=== PATIENT | male | born 1985 ===

== ENCOUNTER 2018-11-03 21:36 | Emergency (ER) | payer SELFPAY ==
[~2018-11-03] VITALS: Ht 172.7 cm; Wt 97.5 kg
[2018-11-03] MEDS ORDERED: NS IV 1000 ML 1,000 ML IV SCH (21:45)
[2018-11-03] MEDS ORDERED: ONDANSETRON 4 MG/2 ML (SDV) Z0FRAN IVP ONE (21:45)
[2018-11-03 21:56] LABS: BASOPHILS % (AUTO) 0 % (0-10); EOSINOPHILS # (AUTO) 0.1 10^3/uL (0.0-0.3); EOSINOPHILS % (AUTO) 1 % (0-10); HEMATOCRIT 45 % (40-54); HEMOGLOBIN 15.3 G/DL (13.3-17.7); LYMPHOCYTES # (AUTO) 0.8 X 10^3 (1.0-4.0); LYMPHOCYTES % (AUTO) 10 % (12-44); MEAN CORPUSCULAR HEMOGLOBIN 29 PG (25-34); MEAN CORPUSCULAR HGB CONC 34 G/DL (32-36); MEAN CORPUSCULAR VOLUME 85 FL (80-99); MEAN PLATELET VOLUME 12.3 FL (7.4-10.4); MONOCYTES # (AUTO) 0.6 X 10^3 (0.0-1.0); MONOCYTES % (AUTO) 8 % (0-12); NEUTROPHILS # (AUTO) 6.6 X 10^3 (1.8-7.8); NEUTROPHILS % (AUTO) 81 % (42-75); PLATELET COUNT 124 10^3/uL (130-400); RED CELL DISTRIBUTION WIDTH 12.8 % (10.0-14.5); WHITE BLOOD COUNT 8.1 10^3/uL (4.3-11.0)
[2018-11-03] MEDS ORDERED: IBUPROFEN 800 MG (MOTRIN) TAB PO ONE (22:00)
[2018-11-03] MEDS ORDERED: ACETAMINOPHEN 500 MG TAB (TYLENOL) PO ONE (22:00)
[2018-11-03 22:22] LABS: ALANINE AMINOTRANSFERASE 21 U/L (0-55); ALBUMIN 4.1 GM/DL (3.2-4.5); ALKALINE PHOSPHATASE 52 U/L (40-136); AMYLASE 76 U/L (25-125); BILIRUBIN,TOTAL 0.4 MG/DL (0.1-1.0); BUN/CREATININE RATIO 10; CALCIUM 9.1 MG/DL (8.5-10.1); CARBON DIOXIDE 24 MMOL/L (21-32); CHLORIDE 104 MMOL/L (98-107); CREATININE SERUM 0.86 MG/DL (0.60-1.30); GFR ESTIMATED > 60; GLUCOSE 106 MG/DL (70-105); LIPASE 21 U/L (8-78); POTASSIUM 3.9 MMOL/L (3.6-5.0); SODIUM 137 MMOL/L (135-145); TOTAL PROTEIN 7.5 GM/DL (6.4-8.2)
--- NOTE | 2018-11-03 22:58 | ED Abdominal Pain ---
General Chief Complaint: Abdominal/GI Problems Stated Complaint: COLD, ABD PAIN, VOMITING Nursing Triage Note: Pt arrived with chief complaint of stomach pains, vomiting, diarrhea, and being really hot/cold. Pt stated it started this morning around 0800. Pt stated that he has soreness and aching in abdomen from vomiting and diarrhea. Sepsis Screen: Possible Sepsis Risk Source of Information: Patient Exam Limitations: No Limitations History of Present Illness Date Seen by Provider: Nov 03, 2018 Time Seen by Provider: 21:37 Initial Comments Patient is a 33-year-old male who presents to the emergency room with complaints of abdominal pain, nausea, vomiting, diarrhea that started this morning. He also has had periods of being hot and cold. He reports that he cooked and ate casey that had been left out for 2 days prior to cooking it. Timing/Duration: 12-24 Hours Severity/Quality: Cramping Location: Epigastric Radiation: No Radiation Associated Symptoms: Fever/Chills, Nausea/Vomiting Allergies and Home Medications Allergies Coded Allergies: No Known Drug Allergies (Unverified , 11/03/18) Home Medications Ondansetron HCl 4 Mg Tab, 4 MG PO Q4H PRN for NAUSEA/VOMITING Prescribed by: JANEY MOODY on 11/03/18 5799 Patient Home Medication List Home Medication List Reviewed: Yes Review of Systems Review of Systems Constitutional: see HPI, chills, fever Gastrointestinal: See HPI, Abdominal Pain, Diarrhea, Nausea, Vomiting All Other Systems Reviewed Negative Unless Noted: Yes Past Syyilkb-Mxtrha-Jlwulb Hx Past Med/Social Hx: Reviewed Nursing Past Med/Soc Hx Patient Social History Alcohol Use: Denies Use Recreational Drug Use: Yes (weed) Smoking Status: Never a Smoker Recent Foreign Travel: No Contact w/Someone Who Travel: No Recent Infectious Disease Expo: No Recent Hopitalizations: No Physical Abuse: No Sexual Abuse: No Mistreated: No Fear: No Seasonal Allergies Seasonal Allergies: No Past Medical History Surgeries: No Respiratory: No Cardiac: No Neurological: No Genitourinary: No Gastrointestinal: No Musculoskeletal: No Endocrine: No HEENT: No Cancer: No Psychosocial: No Integumentary: No Blood Disorders: No Family Medical History Reviewed Nursing Family Hx Physical Exam Vital Signs Vital Signs - First Documented 11/03/18 21:38 Temp 101.2 Pulse 118 Resp 18 B/P (MAP) 147/90 (109) Pulse Ox 98 O2 Delivery Room Air Capillary Refill : Less Than 3 Seconds Height/Weight/BMI Height: 5'8.00" Weight: 215lbs. oz. 97.448143gl; BMI Method:Stated General Appearance: WD/WN, no apparent distress Respiratory: chest non-tender, lungs clear, normal breath sounds, no respiratory distress, no accessory muscle use Cardiovascular: normal peripheral pulses, regular rate, rhythm, no edema, no gallop, no JVD, no murmur Gastrointestinal: normal bowel sounds, non tender, soft, no organomegaly, no pulsatile mass Extremities: normal capillary refill Neurologic/Psychiatric: alert, normal mood/affect, oriented x 3 Skin: normal color, warm/dry Progress/Results/Core Measures Results/Orders Lab Results Laboratory Tests Test 11/03/18 21:48 11/03/18 23:12 Range/Units White Blood Count 8.1 4.3-11.0 10^3/uL Red Blood Count 5.30 4.35-5.85 10^6/uL Hemoglobin 15.3 13.3-17.7 G/DL Hematocrit 45 40-54 % Mean Corpuscular Volume 85 80-99 FL Mean Corpuscular Hemoglobin 29 25-34 PG Mean Corpuscular Hemoglobin Concent 34 32-36 G/DL Red Cell Distribution Width 12.8 10.0-14.5 % Platelet Count 124 L 130-400 10^3/uL Mean Platelet Volume 12.3 H 7.4-10.4 FL Neutrophils (%) (Auto) 81 H 42-75 % Lymphocytes (%) (Auto) 10 L 12-44 % Monocytes (%) (Auto) 8 0-12 % Eosinophils (%) (Auto) 1 0-10 % Basophils (%) (Auto) 0 0-10 % Neutrophils # (Auto) 6.6 1.8-7.8 X 10^3 Lymphocytes # (Auto) 0.8 L 1.0-4.0 X 10^3 Monocytes # (Auto) 0.6 0.0-1.0 X 10^3 Eosinophils # (Auto) 0.1 0.0-0.3 10^3/uL Basophils # (Auto) 0.0 0.0-0.1 10^3/uL Sodium Level 137 135-145 MMOL/L Potassium Level 3.9 3.6-5.0 MMOL/L Chloride Level 104 98-107 MMOL/L Carbon Dioxide Level 24 21-32 MMOL/L Anion Gap 9 5-14 MMOL/L Blood Urea Nitrogen 9 7-18 MG/DL Creatinine 0.86 0.60-1.30 MG/DL Estimat Glomerular Filtration Rate > 60 BUN/Creatinine Ratio 10 Glucose Level 106 H 70-105 MG/DL Calcium Level 9.1 8.5-10.1 MG/DL Corrected Calcium 9.0 8.5-10.1 MG/DL Total Bilirubin 0.4 0.1-1.0 MG/DL Aspartate Amino Transf (AST/SGOT) 16 5-34 U/L Alanine Aminotransferase (ALT/SGPT) 21 0-55 U/L Alkaline Phosphatase 52 40-136 U/L Total Protein 7.5 6.4-8.2 GM/DL Albumin 4.1 3.2-4.5 GM/DL Amylase Level 76 25-125 U/L Lipase 21 8-78 U/L Urine Color YELLOW Urine Clarity CLEAR Urine pH 5 5-9 Urine Specific [place] 1.020 1.016-1.022 Urine Protein NEGATIVE NEGATIVE Urine Glucose (UA) NEGATIVE NEGATIVE Urine Ketones NEGATIVE NEGATIVE Urine Nitrite NEGATIVE NEGATIVE Urine Bilirubin NEGATIVE NEGATIVE Urine Urobilinogen NORMAL NORMAL MG/DL Urine Leukocyte Esterase NEGATIVE NEGATIVE Urine RBC (Auto) 1+ H NEGATIVE Urine RBC 0-2 /HPF Urine WBC NONE /HPF Urine Squamous Epithelial Cells 0-2 /HPF Urine Crystals NONE /LPF Urine Bacteria NONE /HPF Urine Casts NONE /LPF Urine Mucus NEGATIVE /LPF Urine Culture Indicated NO Micro Results Microbiology 11/03/18 Influenza Types A,B Antigen (HOLLY) - Final, Complete My Orders Orders - JANEY MOODY Influenza A And B Antigens (11/03/18 21:45) Ondansetron Injection (Zofran Injectio (11/03/18 21:45) Ns Iv 1000 Ml (Sodium Chloride 0.9%) (11/03/18 21:45) Comprehensive Metabolic Panel (11/03/18 21:45) Lipase (11/03/18 21:45) Amylase (11/03/18 21:45) Ua Culture If Indicated (11/03/18 21:45) Saline Lock/Iv-Start (11/03/18 21:45) Cbc With Automated Diff (11/03/18 21:45) Acetaminophen Tablet (Tylenol Tablet) (11/03/18 22:00) Ibuprofen Tablet (Motrin Tablet) (11/03/18 22:00) Rx-Ondansetron Po (Rx-Zofran Po) (11/03/18 23:15) Iv Push Spooler Operator Automatic Ed (11/03/18 ) Medications Given in ED Vital Signs/I&O 11/03/18 11/03/18 21:38 23:31 Temp 101.2 100.3 Pulse 118 115 Resp 18 20 B/P (MAP) 147/90 (109) 156/106 (123) Pulse Ox 98 98 O2 Delivery Room Air Room Air Blood Pressure Mean: 109 Progress Progress Note : Time: 22:56 Progress Note I have seen and evaluated the patient. I have informed him of laboratory finding. He agrees with plans for discharge. Return precautions were given. Departure Impression Primary Impression: Food poisoning Additional Impression: Nausea vomiting and diarrhea Disposition: HOME, SELF-CARE Condition: Stable/Unchanged Departure-Patient Inst. Decision time for Depature: 22:56 Referrals: [facility] (PCP/Family) Primary Care Physician Patient Instructions: Food Poisoning (DC), Viral Gastroenteritis, Adult (DC) Add. Discharge Instructions: Take medications as directed. Clear liquid diet for 24 hours and advanced as tolerated. You may use [id number] anti-diarrheal as directed by the bottle. Tylenol and ibuprofen as needed for pain and fever. Follow-up with [facility] within 1 week for recheck. Return back to the emergency room for any worsening symptoms or concerns as needed. All discharge instructions reviewed with patient and/or family. Voiced understanding. Scripts Ondansetron HCl (Zofran) 4 Mg Tab 4 MG PO Q4H PRN for NAUSEA/VOMITING, #14 TAB Prov: JANEY MOODY 11/03/18 JANEY MOODY Nov 03, 2018 22:58
[2018-11-03] MEDS ORDERED: ONDN4T PO (22:59)
[2018-11-03] MEDS ORDERED: RX-ONDANSETRON 4 MG ODT (ZOFRAN) PPK #4 PO STA (23:15)
[2018-11-03 23:18] LABS: BILIRUBIN,URINE NEGATIVE (NEGATIVE); CLARITY,URINE CLEAR; COLOR,URINE YELLOW; GLUCOSE, URINE (UA) NEGATIVE (NEGATIVE); KETONES,URINE NEGATIVE (NEGATIVE); LEUKOCYTE ESTERASE ,URINE NEGATIVE (NEGATIVE); NITRITE,URINE NEGATIVE (NEGATIVE); PH,URINE 5 (5-9); PROTEIN,URINE NEGATIVE (NEGATIVE); UROBILINOGEN,URINE NORMAL (NORMAL)
[2018-11-03 23:24] LABS: RBC,URINE 0-2 /HPF; SQUAMOUS EPITHELIAL CELL,UR 0-2 /HPF
[2018-11-03 23:31] VITALS: BP 156/106
--- OUTSIDE RECORDS SUMMARY | 2018-11-04 10:14 | XMS REPORT ---
Author BRENDA Montes [facility] eClinicalWorks Address Unknown Phone Unavailable Care Team Providers Care Senior Reservoir Engineer Name Role Phone BRENDA EVANS CP Unavailable Allergies, Adverse Reactions, Alerts Substance Reaction Event Type N.K.D.A. Info Not Available Non Drug Allergy Problems Problem Type Condition Code Onset Dates Condition Status Assessment Cracked tooth K03.81 Active Assessment Diarrhea R19.7 Active Medications Medication Code System Code Instructions Start Date End Date Status Dosage Amoxicillin [facility] [address]-18 500 MG Orally Twice a day Sep 19, 2015 Sep 29, 2015 2 capsules one time Procedures Procedure Coding System Code Date Office Visit, New Pt., Level 3 CPT-4 08332 Sep 19, 2015 Vital Signs Date/Time: Sep 19, 2015 Temperature 97.9 F Weight 218.0 lbs Height 68.1 in BMI 33.05 Index Blood Pressure Diastolic 90 mmHg Blood Pressure Systolic 140 mmHg Cardiac Monitoring Heart Rate 100 bpm Results No Known Results Summary Purpose eClinicalWorks Submission
--- OUTSIDE RECORDS SUMMARY | 2018-11-04 10:14 | XMS REPORT ---
Author Author BRENDA EVANS [facility] Address [address] [place] [address] Care Team Providers Care Food Service Director Name Role Phone BRENDA EVANS Unavailable PROBLEMS Unknown Problems ALLERGIES No Known Allergies ENCOUNTERS Encounter Location Date Diagnosis [facility] [address] [place] [address] [id number] [id number] May, Diarrhea, unspecified type R19.7 [place] [id number] [facility] [id number] [id number] Aug, Diarrhea R19.7 and Cracked tooth K03.81 IMMUNIZATIONS No Known Immunizations SOCIAL HISTORY Never Assessed REASON FOR VISIT Diarrhea/stomach pain. Off and on since last week. Not as much energy. [email or web address] PLAN OF CARE Activity Details Follow Up prn Reason: VITAL SIGNS Height 68.1 in 2018-06-04 Weight 230.3 lbs 2018-06-04 Temperature 98.4 degrees Fahrenheit 2018-06-04 Heart Rate 100 bpm 2018-06-04 Respiratory Rate 16 2018-06-04 Oximetry 98 % 2018-06-04 BMI 34.91 kg/m2 2018-06-04 Blood pressure systolic 128 mmHg 2018-06-04 Blood pressure diastolic 89 mmHg 2018-06-04 MEDICATIONS Medication Instructions Dosage Frequency Start Date End Date Duration Status Acidophilus 100 mg Orally 2 times a day 1 capsule 12h May,May 07 days Active RESULTS No Results PROCEDURES No Known procedures INSTRUCTIONS MEDICATIONS ADMINISTERED No Known Medications
== END 2018-11-03 23:31 | disposition home or self-care (01) ==
LOC: ER 21:38
DX: T62.94XA Toxic effect of unspecified noxious substance eaten as food, undetermined, initial encounter (principal)
CPT/HCPCS: 36415; 80053; 81000; 82150; 83690; 85025; 87804; 96361; 96374

== ENCOUNTER 2019-03-25 01:31 | Emergency (ER) | payer SELFPAY ==
[~2019-03-25] VITALS: Ht 172.7 cm; Wt 97.5 kg
[~2019-03-25 01:31] MED LIST: ONDN4T PO
--- NOTE | 2019-03-25 01:49 | ED EENT ---
History of Present Illness General Stated Complaint: SORE THROAT Source: patient History of Present Illness Date Seen by Provider: March 25, 2019 Time Seen by Provider: 01:48 Initial Comments PT ARRIVES VIA POV FROM HOME C/O SORE THROAT--BEGAN EARLIER TODAY NO FEVER NO URI SYMPTOMS NO DIFFICULTY SWALLOWING OR HANDLING SECRETIONS NO KNOWN SICK CONTACTS HAS NOT TAKEN ANYTHING FOR SYMPTOMS STATES HE HAS THROAT INFECTIONS FREQUENTLY--LAST ONE WAS A COUPLE OF MONTHS AGO PCP: [facility] Allergies and Home Medications Allergies Coded Allergies: No Known Drug Allergies (Unverified , 11/03/18) Home Medications Amoxicillin/Potassium Clav 1 Each Tablet, 1 EACH PO BID Prescribed by: DIMITRIOS SRINIVASAN on 03/25/19 0208 Ondansetron HCl 4 Mg Tab, 4 MG PO Q4H PRN for NAUSEA/VOMITING Prescribed by: JANEY MOODY on 11/03/18 7380 Patient Home Medication List Home Medication List Reviewed: Yes Review of Systems Review of Systems Constitutional: no symptoms reported Eyes: No Symptoms Reported Ears: No Symptoms Reported Nose: no symptoms reported Mouth: no symptoms reported Throat: see HPI, pain; denies neck stiffness, denies hoarse, denies aphonia, denies muffled; painful swallowing; denies difficulty with fluids Respiratory: no symptoms reported Cardiovascular: no symptoms reported Gastrointestinal: no symptoms reported Musculoskeletal: no symptoms reported Skin: no symptoms reported Neurological: No Symptoms Reported Hematologic/Lymphatic: No Symptoms Reported Immunological/Allergic: no symptoms reported Past Pajiadw-Sobgve-Ozupfw Hx Patient Social History Alcohol Use: Occasionally Uses Recreational Drug Use: No Smoking Status: Never a Smoker Recent Foreign Travel: No Contact w/Someone Who Travel: No Recent Hopitalizations: No Seasonal Allergies Seasonal Allergies: No Past Medical History Surgeries: No Respiratory: No Cardiac: No Neurological: No Genitourinary: No Gastrointestinal: No Musculoskeletal: No Endocrine: No HEENT: Yes Tonsilitis Cancer: No Psychosocial: No Integumentary: No Blood Disorders: No Physical Exam Height, Weight, BMI Height: 5'8.00" Weight: 215lbs. oz. 97.514819az; BMI Method:Stated General Appearance: WD/WN, no apparent distress, other (TEXTING/PLAYING ON PHONE THROUGHOUT EXAM AND ER STAY; DOES NOT APPEAR ILL OR TO BE IN ANY DISCOMFORT OR DISTRESS) Eyes: bilateral eye normal inspection, bilateral eye PERRL, bilateral eye EOMI Ears: bilateral ear auricle normal, bilateral ear canal normal, bilateral ear TM normal Nose: normal inspection Mouth/Throat: normal mouth inspection; No uvula swelling, No voice changes; other (PHARYNGEAL ERYTHEMA, NO EXUDATE, NO SIGNIFICANT SWELLING NOTED. VOICE NORMAL) Neck: non-tender, full range of motion, supple, normal inspection; No lymphadenopathy (R), No lymphadenopathy (L) Cardiovascular: regular rate, rhythm, no edema, no murmur Respiratory: normal breath sounds Gastrointestinal: soft Neurologic/Psychiatric: visitor services specialist II-XII nml as tested, no motor/sensory deficits, alert, normal mood/affect, oriented x 3 Skin: normal color, warm/dry; No rash Progress/Results/Core Measures Results/Orders Lab Results Laboratory Tests Test 03/25/19 01:46 Range/Units Group A Streptococcus Screen NEGATIVE NEGATIVE My Orders Orders - DIMITRIOS SRINIVASAN DO Rapid Strep A Screen (03/25/19 01:48) Amoxicillin/Clavulanate Tablet (Augmenti (03/25/19 02:15) Departure Impression Primary Impression: Pharyngitis Disposition: HOME, SELF-CARE Condition: Stable Departure-Patient Inst. [facility]errals: [facility] ([facility]/Family) Primary Care Physician Patient Instructions: Sore Throat, Adult (DC) Add. Discharge Instructions: TYLENOL 1 GRAM/ MOTRIN 800 MG 4 TIMES A DAY NEEDED FOR PAIN OR FEVER FREQUENT SALT WATER GARGLES FOLLOW UP WITH [facility] IN 3-4 DAYS IF NO BETTER Scripts Amoxicillin/Potassium Clav (Augmentin 875-125 Tablet) 1 Each Tablet 1 EACH PO BID, #20 TAB Prov: DIMITRIOS SRINIVASAN DO 03/25/19 DIMITRIOS SRINIVASAN DO March 25, 2019 01:49
[2019-03-25] MEDS ORDERED: AMOX-358 PO (02:08)
[2019-03-25] MEDS ORDERED: AUGMENTIN 875 MG TAB (AMOXICILLIN/CLAVULANATE) PO SCH (02:15)
[2019-03-25 02:30] VITALS: BP 128/86
== END 2019-03-25 02:31 | disposition home or self-care (01) ==
LOC: EDUNIT# 01:31 → ER 01:35
DX: J02.9 Acute pharyngitis, unspecified (principal)
CPT/HCPCS: 87430; 99284